=== PATIENT | female | born 1940 | race Caucasian/White ===

== ENCOUNTER → 2021-04-12 | Outpatient (CLI) | payer MEDICARE ==
--- NOTE | 2021-04-12 15:13 | Diagnostic Imaging Report ---
INDICATION: Left knee pain. TIME OF EXAM: 2:13 PM. FINDINGS: Four views of the left knee demonstrate severe medial compartmental degenerative change. There is complete loss of the medial joint space. There is marginal osteophyte formation. There are some marginal osteophytes of the lateral compartment but the lateral compartment joint space is fairly well maintained. There is moderate patellofemoral degenerative change. No fracture, dislocation, or effusion is seen. IMPRESSION: Degenerative changes, greatest involving the medial compartment. No acute bony abnormality is detected. Dictated by: Dictated on workstation # [id number]
== END ==
LOC: ORTHO 13:24
PROVIDERS: ATTEND Orthopaedic Surgery
DX: M17.12 Unilateral primary osteoarthritis, left knee (principal); M25.512 Pain in left shoulder
CPT/HCPCS: 73564

== ENCOUNTER → 2021-10-06 | Outpatient (CLI) | payer MEDICARE, OTHER | LOC: ORTHO 14:08 | PROVIDERS: ATTEND Orthopaedic Surgery | DX: M19.012 Primary osteoarthritis, left shoulder (principal); M17.12 Unilateral primary osteoarthritis, left knee ==

== ENCOUNTER → 2022-01-10 | Outpatient (CLI) | payer OTHER | LOC: ORTHO 17:08 | PROVIDERS: ATTEND Orthopaedic Surgery | DX: M19.012 Primary osteoarthritis, left shoulder (principal) | CPT/HCPCS: 20610 ==

== ENCOUNTER → 2022-04-13 | Outpatient (CLI) | payer OTHER | LOC: ORTHO 11:20 | PROVIDERS: ATTEND Orthopaedic Surgery | DX: M19.012 Primary osteoarthritis, left shoulder (principal); M17.12 Unilateral primary osteoarthritis, left knee ==

== ENCOUNTER → 2022-07-20 | Outpatient (CLI) | payer OTHER | LOC: ORTHO 13:08 | PROVIDERS: ATTEND Orthopaedic Surgery | DX: M19.019 Primary osteoarthritis, unspecified shoulder (principal); M17.12 Unilateral primary osteoarthritis, left knee ==

== ENCOUNTER → 2022-12-21 | Outpatient (CLI) | payer OTHER | LOC: ORTHO 14:32 | PROVIDERS: ATTEND Orthopaedic Surgery | DX: M19.012 Primary osteoarthritis, left shoulder (principal); M17.12 Unilateral primary osteoarthritis, left knee ==

== ENCOUNTER → 2023-04-29 | Outpatient (CLI) | payer OTHER ==
[2023-04-29 12:26] LABS: BASOPHILS # (AUTO) 0.1 10^3/uL (0.0-0.1); BASOPHILS % (AUTO) 1 % (0-10); EOSINOPHILS # (AUTO) 0.1 10^3/uL (0.0-0.3); EOSINOPHILS % (AUTO) 1 % (0-10); HEMATOCRIT 36 % (35-52); HEMOGLOBIN 12.4 g/dL (11.5-16.0); LYMPHOCYTES # (AUTO) 0.7 10^3/uL (1.0-4.0); LYMPHOCYTES % (AUTO) 5 % (12-44); MEAN CORPUSCULAR HEMOGLOBIN 32 pg (25-34); MEAN CORPUSCULAR HGB CONC 35 g/dL (32-36); MEAN CORPUSCULAR VOLUME 93 fL (80-99); MEAN PLATELET VOLUME 9.5 fL (9.0-12.2); MONOCYTES % (AUTO) 7 % (0-12); NEUTROPHILS # (AUTO) 12.5 10^3/uL (1.8-7.8); NEUTROPHILS % (AUTO) 86 % (42-75); PLATELET COUNT 406 10^3/uL (130-400); WHITE BLOOD COUNT 14.5 10^3/uL (4.3-11.0)
[2023-04-29 12:27] LABS: ALBUMIN 3.7 GM/DL (3.2-4.5); POTASSIUM 3.8 MMOL/L (3.6-5.0)
[2023-04-29 12:29] LABS: CALCIUM 9.1 MG/DL (8.5-10.1)
[2023-04-29 12:30] LABS: TOTAL PROTEIN 6.9 GM/DL (6.4-8.2)
[2023-04-29 12:32] LABS: BILIRUBIN,TOTAL 0.7 MG/DL (0.1-1.0)
[2023-04-29 12:33] LABS: CREATININE SERUM 0.73 MG/DL (0.60-1.30)
[2023-04-29 12:53] LABS: BAND NEUTROPHILS 2 %; BASOPHILS % (MANUAL) 0 %; EOSINOPHILS % (MANUAL) 1 %; LYMPHOCYTES % (MANUAL) 6 %; MONOCYTES % (MANUAL) 4 %; NEUTROPHILS % (MANUAL) 87 %; RBC MORPH NORMAL
== END ==
LOC: LABNPT 12:20
PROVIDERS: ATTEND Internal Medicine
DX: E87.1 Hypo-osmolality and hyponatremia (principal); M48.50XS Collapsed vertebra, not elsewhere classified, site unspecified, sequela of fracture
CPT/HCPCS: 80053; 85007; 85027

== ENCOUNTER → 2023-05-05 | Outpatient (CLI) | payer MEDICARE ==
[2023-05-05 09:19] LABS: ALBUMIN 3.8 GM/DL (3.2-4.5)
[2023-05-05 09:20] LABS: POTASSIUM 4.7 MMOL/L (3.6-5.0)
[2023-05-05 09:21] LABS: CALCIUM 9.5 MG/DL (8.5-10.1)
[2023-05-05 09:22] LABS: TOTAL PROTEIN 7.1 GM/DL (6.4-8.2)
[2023-05-05 09:24] LABS: BILIRUBIN,TOTAL 0.5 MG/DL (0.1-1.0)
[2023-05-05 09:26] LABS: CREATININE SERUM 0.77 MG/DL (0.60-1.30)
== END ==
LOC: LABNPT 07:45
PROVIDERS: ATTEND Internal Medicine
DX: M48.50XA Collapsed vertebra, not elsewhere classified, site unspecified, initial encounter for fracture (principal); E87.1 Hypo-osmolality and hyponatremia
CPT/HCPCS: 80053

== ENCOUNTER → 2023-05-06 | Outpatient (CLI) | payer MEDICARE ==
[2023-05-06 10:51] LABS: HEMATOCRIT 36 % (35-52); MEAN CORPUSCULAR HEMOGLOBIN 32 pg (25-34); MEAN CORPUSCULAR HGB CONC 33 g/dL (32-36); MEAN CORPUSCULAR VOLUME 95 fL (80-99); MEAN PLATELET VOLUME 9.7 fL (9.0-12.2); PLATELET COUNT 384 10^3/uL (130-400); WHITE BLOOD COUNT 7.6 10^3/uL (4.3-11.0)
[2023-05-06 10:56] LABS: ALBUMIN 3.8 GM/DL (3.2-4.5); POTASSIUM 3.6 MMOL/L (3.6-5.0)
[2023-05-06 10:57] LABS: CALCIUM 9.4 MG/DL (8.5-10.1)
[2023-05-06 10:58] LABS: TOTAL PROTEIN 7.2 GM/DL (6.4-8.2)
[2023-05-06 11:00] LABS: BILIRUBIN,TOTAL 0.6 MG/DL (0.1-1.0)
[2023-05-06 11:02] LABS: CREATININE SERUM 0.83 MG/DL (0.60-1.30)
== END ==
LOC: CVS 10:45
PROVIDERS: ATTEND Internal Medicine
DX: E87.1 Hypo-osmolality and hyponatremia (principal); M48.50XS Collapsed vertebra, not elsewhere classified, site unspecified, sequela of fracture
CPT/HCPCS: 80053; 85027